=== PATIENT | male | born 1985 | race Caucasian/White ===

== ENCOUNTER 2021-07-17 01:10 | Emergency (ER) | payer OTHER ==
[2021-07-17] MEDS ORDERED: Ibuprofen 600 MG Tab PO ONE (01:31)
[2021-07-17] MEDS ORDERED: Cephalexin 500 MG Cap PO ONE (01:54)
--- NOTE | 2021-07-17 01:55 | EDM.PDOC ---
ED HPI GENERAL MEDICAL PROBLEM - General Chief Complaint: Lower Extremity Injury/Pain Stated Complaint: FELL- HURT LEFT LEG Time Seen by Provider: 07/17/21 01:28 - History of Present Illness INITIAL COMMENTS - FREE TEXT/NARRATIVE: HISTORY AND PHYSICAL: History of present illness: This is a 35-year-old gentleman who presents ER today secondary to injury to his left mid pretibial region and left ankle pain. Patient ports that he fell down and has a laceration to his left mid pretibial region from a stone that injured it and resulted in twisting his left ankle. Patient has any head trauma. Patient has any injury to any other joints or extremity. Patient has been off of consciousness. Review of systems: As per history of present illness and below otherwise all systems reviewed and negative. Past medical history: As per history of present illness and as reviewed below otherwise noncontributory. Surgical history: As per history of present illness and as reviewed below otherwise noncontributory. Social history: No reported history of drug abuse. Family history: As per history of present illness and as reviewed below otherwise noncontributory. Physical exam: This patient was seen and evaluated during the 2019 SARS-CoV-2 novel coronavirus pandemic period. Community viral transmission is ongoing at time of this encounter and the emergency department is operating under pandemic response procedures. Constitutional: Patient is oriented to person, place, and time. Appears well- developed and well-nourished. No distress. HEENT: Moist mucous membranes Head: Normocephalic and atraumatic Eyes: Right eye exhibits no discharge. Left eye exhibits no discharge. No scleral icterus Neck: Normal range of motion. No tracheal deviation present. Cardiovascular: Normal rate and regular rhythm. Pulmonary: Effort normal, no respiratory distress. Abdominal: No distention Musculoskeletal: Normal range of motion Neurologic: Alert and oriented to person, place and time. Skin: [place], warm and dry. Psychiatric: Normal mood and affect. Behavior is normal. Judgment and thought content normal. Nursing note and vital signs have been reviewed Patient's ER physical exam is significant for tenderness palpation to his lateral and medial malleolus of his left ankle. Patient has a 2 cm laceration to his mid pretibial region. Diagnostics: X-ray left tib-fib: No acute fracture or dislocation. No foreign body X-ray left ankle: No acute fracture dislocation Therapeutics: Motrin 600 mg p.o. Suture: Please see suture note Assessment and plan: 35-year-old gentleman who presents ER today secondary to injury to his left lower extremity. X-rays are negative for any acute fracture dislocation or foreign body. Patient will be sutured in the ED. Tetanus status is up-to-date. Patient be discharged home with a prescription for Keflex and ibuprofen. Patient need a wound check in 2 days and suture removal in 10 days. Reassessment at the time of disposition demonstrates that the patient is in no acute distress. The patient has remained stable throughout the entire ED visit and is without objective evidence for acute process requiring urgent intervention or hospitalization. The patient is stable for discharge, counseling is provided as documented above, discussed symptomatic treatment and specific conditions for return. I have spoken with the patient/caregiver and discussed todays findings, in addition to providing specific details for the plan of care. Questions are answered and there is agreement with the plan. Definitive disposition and diagnosis as appropriate pending reevaluation and review of above. Right Lower Leg Pain Score (Numeric/FACES): 7 - Related Data Allergies Allergy/AdvReac Type Severity Reaction Status Date / Time No Known Allergies Allergy Verified 07/17/21 01:19 Home Meds: Home Meds Ibuprofen 600 mg PO Q6HR PRN #30 tablet 07/17/21 [Rx] cephALEXin [Keflex] 500 mg PO Q8H #21 cap 07/17/21 [Rx] Past Medical History - Past Health History Medical/Surgical History: Denies Medical/Surgical History - Infectious Disease History Infectious Disease History: Reports: Chicken Pox Social & Family History - Family History Family Medical History: No Pertinent Family History - Caffeine Use Caffeine Use: Reports: None - Recreational Drug Use Recreational Drug Use: No Review of Systems - Review of Systems Review Of Systems: See Below ED EXAM, GENERAL - Physical Exam Exam: See Below ED TRAUMA EXTREMITY PROCEDURES - Laceration/Wound Repair Left Middle Leg Lac/Wound Length In cm: 2 Appearance: Linear Distal NVT: Neuro & Vascular Intact Anesthetic Type: Local Local Anesthesia - Lidocaine (Xylocaine): 1% Plain Local Anesthetic Volume: 2cc Skin Prep: Saline Exploration/Debridement/Repair: Wound Explored, No Foreign Material Found Closed With: Sutures Suture Size: 4-0 # of Sutures: 4 Suture Type: Nylon Sterile Dressing Applied: Nurse Tetanus Status Addressed: Yes Complications: No Course - Vital Signs Last Recorded V/S: Last Vital Signs Temp 97.0 F 07/17/21 01:34 Pulse 86 07/17/21 01:20 Resp 19 07/17/21 01:20 BP 139/92 H 07/17/21 01:20 Pulse Ox 96 07/17/21 01:20 - Orders/Labs/Meds Meds: Medications Discontinued Medications Generic Name Dose Route Start Last Admin Trade Name Freq PRN Reason Stop Dose Admin Bacitracin 1 dose 07/17/21 02:15 Bacitracin Oint 1 Gm U/D Packet TOP 07/17/21 02:16 ONETIME ONE Cephalexin 500 mg 07/17/21 01:54 07/17/21 02:09 Cephalexin 500 Mg Cap PO 07/17/21 01:55 500 mg ONETIME ONE Administration Ibuprofen 600 mg 07/17/21 01:31 07/17/21 01:34 Ibuprofen 600 Mg Tab PO 07/17/21 01:32 600 mg ONETIME ONE Administration Lidocaine HCl 5 ml 07/17/21 01:31 07/17/21 01:34 Lidocaine 1% 5 Ml Sdv INJECT 07/17/21 01:32 5 ml ONETIME ONE Administration Departure - Departure Time of Disposition: 01:52 Disposition: Home, Self-Care 01 Condition: Good Clinical Impression: Left ankle sprain, Laceration of left leg - Discharge Information Prescriptions: Ibuprofen 600 mg PO Q6HR PRN #30 tablet PRN Reason: Pain cephALEXin [Keflex] 500 mg PO Q8H #21 cap Instructions: Ankle Sprain, Laceration Care, Adult, [id number] Referrals: PCP,None [Primary Care Provider] - Forms: ED Department Discharge Additional Instructions: You were seen and evaluated in ER today secondary to injury to your left leg and ankle. You will need a wound check in 2 days to make sure there is no infection and sutures can be removed in 10 days. You can take ibuprofen as needed every 6 hours as needed for pain. You will be given a prescription for Keflex 500 mg to take 3 times a day for 7 days. [facility] at [address] [address] The following information is given to patients seen in the emergency department who are being discharged to home. This information is to outline your options for follow-up care. We provide all patients seen in our emergency department with a follow-up referral. The need for follow-up, as well as the timing and circumstances, are variable depending upon the specifics of your emergency department visit. If you don't have a primary care physician on staff, we will provide you with a referral. We always advise you to contact your personal physician following an emergency department visit to inform them of the circumstance of the visit and for follow-up with them and/or the need for any referrals to a consulting specialist. The emergency department will also refer you to a specialist when appropriate. This referral assures that you have the opportunity for follow-up care with a specialist. All of these measure are taken in an effort to provide you with optimal care, which includes your follow-up. Under all circumstances we always encourage you to contact your private physician who remains a resource for coordinating your care. When calling for follow-up care, please make the office aware that this follow-up is from your recent emergency room visit. If for any reason you are refused follow-up, please contact the [facility] Emergency Department at and asked to speak to the emergency department charge nurse. [facility] - Primary Care [address] [place] [address] [id number] [address] [address] Sepsis Event Note (ED) - Focused Exam Vital Signs: Vital Signs Temp Temp Pulse Resp BP Pulse Ox 07/17/21 01:34 97.0 F 07/17/21 01:20 97.0 F 86 19 139/92 H 96
--- NOTE | 2021-07-17 02:14 | CR ---
Indication: Pain after fall Technique: views Comparison: None Findings: Bones: Alignment is normal. No fractures or bone lesions. Joint spaces: Unremarkable. Soft tissues: Unremarkable. Dictated by Toby Moe MD @ 07/17/2021 2:13:26 AM (Electronically Signed)
[2021-07-17] MEDS ORDERED: Bacitracin Oint 1 GM U/D Packet TOP ONE (02:15)
--- NOTE | 2021-07-17 02:16 | CR ---
Indication: Pain after fall Technique: Two views Comparison: None Findings: Bones: Alignment is normal. No fractures or bone lesions. Joint spaces: Unremarkable. Soft tissues: Anterior soft tissue swelling Dictated by Toby Moe MD @ 07/17/2021 2:14:14 AM (Electronically Signed)
== END 2021-07-17 02:34 | disposition home or self-care (01) ==
LOC: MW.ED 01:10
DX: S81.812A Laceration without foreign body, left lower leg, initial encounter (principal); S93.402A Sprain of unspecified ligament of left ankle, initial encounter; X50.1XXA Overexertion from prolonged static or awkward postures, initial encounter
CPT/HCPCS: 12001; 73590; 73610; 99283; A9270

== ENCOUNTER 2022-05-21 13:34 | Emergency (ER) | payer OTHER ==
[2022-05-21] MEDS ORDERED: Ibuprofen 600 MG Tab PO ONE (16:34)
[2022-05-21] MEDS ORDERED: Azithromycin 250 MG Tab PO ONE (16:34)
== END 2022-05-21 16:45 | disposition home or self-care (01) ==
LOC: MW.ED 13:34
DX: J02.9 Acute pharyngitis, unspecified (principal); F17.210 Nicotine dependence, cigarettes, uncomplicated
CPT/HCPCS: 87651; 99283; A9270

== ENCOUNTER 2023-12-21 14:37 | Emergency (ER) | payer BC, OTHER ==
[2023-12-21] MEDS ORDERED: Sodium Chloride 0.9% 2.5 ML Syringe FLUSH PRN (14:41)
[2023-12-21] MEDS ORDERED: Sodium Chloride 0.9% 10 ML Syringe FLUSH PRN (14:41)
[2023-12-21 15:11] LABS: BASOPHILS ABSOLUTE AUTO 0.08 K/uL (0.00-0.20); BASOPHILS PERCENT AUTO 0.7 % (0.0-1.0); EOSINOPHILS ABSOLUTE AUTO 0.27 K/uL (0.00-0.45); EOSINOPHILS PERCENT AUTO 2.3 % (0.0-6.0); HEMATOCRIT 44.2 % (42.0-52.0); HEMOGLOBIN 15.1 g/dL (14.0-18.0); IMMATURE GRAN ABSOLUTE AUTO 0.13 K/uL (0.00-0.05); IMMATURE GRAN PERCENT AUTO 1.1 % (0.0-0.4); LYMPHOCYTES ABSOLUTE AUTO 2.82 K/uL (1.00-4.80); LYMPHOCYTES PERCENT AUTO 24.1 % (24.0-44.0); MEAN CORPUSCULAR HEMOGLOBIN 31.3 pg (28.0-32.0); MEAN CORPUSCULAR HGB CONC 34.2 g/dL (32.0-36.0); MEAN CORPUSCULAR VOLUME 91.7 fL (83.0-99.0); MEAN PLATELET VOLUME 9.6 fL (9.4-12.4); MONOCYTES ABSOLUTE AUTO 1.03 K/uL (0.00-0.80); MONOCYTES PERCENT AUTO 8.8 % (0.0-8.0); NEUTROPHILS ABSOLUTE AUTO 7.38 K/uL (1.80-7.70); PLATELET COUNT,PLT 297 K/uL (150-400); RED BLOOD CELL COUNT 4.82 M/uL (4.52-5.90); WHITE BLOOD CELL COUNT,WBC 11.71 K/uL (3.9-11.3)
[2023-12-21] MEDS: Aspirin 81 MG Tab.Chew PO ONE (15:41)
[2023-12-21 15:49] LABS: A/G RATIO 1.1 (0.9-1.6); ALANINE AMINOTRANSFERASE,ALT 37 IU/L (14-63); ALBUMIN 3.9 g/dL (3.4-5.0); ALKALINE PHOSPHATASE 76 U/L (46-116); ASPARTATE AMNIOTRANSFERASE,AST 21 IU/L (15-37); BILIRUBIN TOTAL 0.7 mg/dL (0.2-1.0); BLOOD UREA NITROGEN,BUN 13 mg/dL (7.0-18.0); CALCIUM 9.2 mg/dL (8.5-10.1); CARBON DIOXIDE,CO2 28.1 mmol/L (21.0-32.0); CHLORIDE,CL 103 mmol/L (98-107); CREATININE 1.1 mg/dL (0.8-1.3); EST CRCL DRUG DOSING (CG) 100.92 mL/min; GLUCOSE RANDOM 87 mg/dL (74-106); POTASSIUM,K 4.2 mmol/L (3.5-5.1); PROTEIN TOTAL,TP 7.6 g/dL (6.4-8.2); SODIUM,NA 139 mmol/L (136-148); TSH ULTRASENSITIVE 2.93 uIU/mL (0.36-3.74)
[2023-12-21 15:51] LABS: ESTIMATED GFR 89 mL/min (>60)
[2023-12-21] MEDS: Sodium Chloride 0.9% 1,000 ML IV ONE (16:20)
[2023-12-21] MEDS: Ketorolac 30 MG/ML SDV IVPUSH ONE (16:23)
[2023-12-21] MEDS: LORazepam 1 MG Tab PO ONE (16:38)
== END 2023-12-21 16:52 | disposition home or self-care (01) ==
LOC: MW.ED 14:37
DX: R07.9 Chest pain, unspecified (principal); F41.9 Anxiety disorder, unspecified; Z88.5 Allergy status to narcotic agent; Z75.8 Other problems related to medical facilities and other health care; Z79.899 Other long term (current) drug therapy
CPT/HCPCS: 36415; 71045; 80053; 84443; 84484; 85025; 93005; 99285; A9270; 93010; 99284

== ENCOUNTER 2024-02-01 03:05 | Emergency (ER) | payer BC, OTHER ==
[2024-02-01] MEDS: Acetaminophen/oxyCODONE 325-5 MG Tab PO ONE (03:30)
== END 2024-02-01 03:31 | disposition home or self-care (01) ==
LOC: MW.ED 03:05
DX: M54.9 Dorsalgia, unspecified (principal); G89.29 Other chronic pain; F17.210 Nicotine dependence, cigarettes, uncomplicated; Z75.8 Other problems related to medical facilities and other health care; Z88.5 Allergy status to narcotic agent; Z79.899 Other long term (current) drug therapy
CPT/HCPCS: 99283; A9270

== ENCOUNTER 2024-03-04 22:21 | Emergency (ER) | payer BC, OTHER ==
[2024-03-04 22:39] LABS: BASOPHILS ABSOLUTE AUTO 0.11 K/uL (0.00-0.20); BASOPHILS PERCENT AUTO 0.9 % (0.0-1.0); EOSINOPHILS ABSOLUTE AUTO 0.48 K/uL (0.00-0.45); EOSINOPHILS PERCENT AUTO 3.7 % (0.0-6.0); HEMATOCRIT 44.5 % (42.0-52.0); IMMATURE GRAN ABSOLUTE AUTO 0.12 K/uL (0.00-0.05); IMMATURE GRAN PERCENT AUTO 0.9 % (0.0-0.4); LYMPHOCYTES PERCENT AUTO 30.2 % (24.0-44.0); MEAN CORPUSCULAR HEMOGLOBIN 31.1 pg (28.0-32.0); MEAN CORPUSCULAR HGB CONC 33.7 g/dL (32.0-36.0); MEAN CORPUSCULAR VOLUME 92.1 fL (83.0-99.0); MEAN PLATELET VOLUME 9.5 fL (9.4-12.4); MONOCYTES ABSOLUTE AUTO 1.13 K/uL (0.00-0.80); MONOCYTES PERCENT AUTO 8.8 % (0.0-8.0); NEUTROPHILS ABSOLUTE AUTO 7.17 K/uL (1.80-7.70); NEUTROPHILS PERCENT AUTO 55.5 % (41.0-71.0); PLATELET COUNT,PLT 310 K/uL (150-400); RED BLOOD CELL COUNT 4.83 M/uL (4.52-5.90); WHITE BLOOD CELL COUNT,WBC 12.91 K/uL (3.9-11.3)
[2024-03-04 23:08] LABS: A/G RATIO 0.9 (0.9-1.6); ALBUMIN 3.4 g/dL (3.4-5.0); BILIRUBIN TOTAL 0.4 mg/dL (0.2-1.0); CALCIUM 8.9 mg/dL (8.5-10.1); CARBON DIOXIDE,CO2 28.3 mmol/L (21.0-32.0); CREATININE 1.3 mg/dL (0.8-1.3); EST CRCL DRUG DOSING (CG) 85.39 mL/min; POTASSIUM,K 3.5 mmol/L (3.5-5.1); PROTEIN TOTAL,TP 7.4 g/dL (6.4-8.2)
[2024-03-04] MEDS: Sodium Chloride 0.9% 10 ML Syringe FLUSH PRN (23:14)
[2024-03-04] MEDS: Sodium Chloride 0.9% 2.5 ML Syringe FLUSH PRN (23:14)
[2024-03-05] MEDS: Iopamidol 755 MG/ML 500 ML Multipack Bottle IVPUSH ONE (01:13)
== END 2024-03-05 02:16 | disposition home or self-care (01) ==
LOC: MW.ED 22:21
DX: R07.89 Other chest pain (principal); Z88.0 Allergy status to penicillin; Z75.8 Other problems related to medical facilities and other health care
CPT/HCPCS: 36415; 71275; 80053; 84484; 85025; 93005; 99285; J3490; Q9967; 93010; 99284

== ENCOUNTER 2024-03-10 22:09 | Emergency (ER) | payer OTHER, BC ==
[2024-03-10 22:58] LABS: BASOPHILS ABSOLUTE AUTO 0.09 K/uL (0.00-0.20); BASOPHILS PERCENT AUTO 0.6 % (0.0-1.0); EOSINOPHILS ABSOLUTE AUTO 0.42 K/uL (0.00-0.45); EOSINOPHILS PERCENT AUTO 2.8 % (0.0-6.0); IMMATURE GRAN ABSOLUTE AUTO 0.16 K/uL (0.00-0.05); IMMATURE GRAN PERCENT AUTO 1.1 % (0.0-0.4); LYMPHOCYTES PERCENT AUTO 25.3 % (24.0-44.0); MEAN CORPUSCULAR HEMOGLOBIN 30.7 pg (28.0-32.0); MEAN CORPUSCULAR HGB CONC 34.1 g/dL (32.0-36.0); MEAN CORPUSCULAR VOLUME 90.2 fL (83.0-99.0); MEAN PLATELET VOLUME 9.4 fL (9.4-12.4); MONOCYTES ABSOLUTE AUTO 1.07 K/uL (0.00-0.80); MONOCYTES PERCENT AUTO 7.1 % (0.0-8.0); NEUTROPHILS ABSOLUTE AUTO 9.46 K/uL (1.80-7.70); NEUTROPHILS PERCENT AUTO 63.1 % (41.0-71.0); PLATELET COUNT,PLT 343 K/uL (150-400); RED BLOOD CELL COUNT 4.88 M/uL (4.52-5.90)
[2024-03-10 23:11] LABS: INR < 0.93 (0.86-1.11); PTT,PARTIAL THROMBOPLSTIN TIME 27.6 SEC (23.9-30.7)
[2024-03-10] MEDS: HYDROmorphone 1 MG/ML Syringe IVPUSH STA (23:13)
[2024-03-10] MEDS: Ondansetron 4 MG/2 ML SDV IVPUSH STA (23:13)
[2024-03-10 23:19] LABS: A/G RATIO 0.8 (0.9-1.6); ALANINE AMINOTRANSFERASE,ALT 32 IU/L (14-63); ALBUMIN 3.6 g/dL (3.4-5.0); ALKALINE PHOSPHATASE 96 U/L (46-116); ASPARTATE AMNIOTRANSFERASE,AST 7 IU/L (15-37); BILIRUBIN TOTAL 0.2 mg/dL (0.2-1.0); BLOOD UREA NITROGEN,BUN 11 mg/dL (7.0-18.0); CALCIUM 8.9 mg/dL (8.5-10.1); CARBON DIOXIDE,CO2 25.7 mmol/L (21.0-32.0); CHLORIDE,CL 102 mmol/L (98-107); CREATININE 1.2 mg/dL (0.8-1.3); GLUCOSE RANDOM 141 mg/dL (74-106); LIPASE 40 U/L (16-77); POTASSIUM,K 3.4 mmol/L (3.5-5.1); PROTEIN TOTAL,TP 7.9 g/dL (6.4-8.2); SODIUM,NA 138 mmol/L (136-148)
[2024-03-10 23:21] LABS: ESTIMATED GFR 80 mL/min (>60)
[2024-03-10 23:29] LABS: ACETAMINOPHEN <2.0 ug/mL; SALICYLATE 2.2 mg/dL (0.0-20.0)
[2024-03-11 00:05] LABS: APPEARANCE,URINE CLEAR; BILIRUBIN,URINE NEGATIVE (NEGATIVE); COLOR,URINE YELLOW; GLUCOSE,URINE NEGATIVE (NEGATIVE); KETONES,URINE NEGATIVE (NEGATIVE); LEUKOCYTE ESTERASE,URINE NEGATIVE (NEGATIVE); NITRITE,URINE NEGATIVE (NEGATIVE); OCCULT BLOOD,URINE TRACE-LYSED (NEGATIVE); PROTEIN,URINE NEGATIVE (NEGATIVE); UROBILINOGEN,URINE 0.2 EU/dL (<2.0)
[2024-03-11 00:09] LABS: BACTERIA,URINE FEW (NEGATIVE); CALCIUM OXALATE CRYSTALS,URINE FEW (NEGATIVE); EPITHELIAL CELLS,URINE RARE (NONE-FEW); MUCUS,URINE LIGHT (NONE-MOD); RBC,URINE 0-1 (0-2/HPF); WBC,URINE NONE SEEN (0-5/HPF)
[2024-03-11] MEDS: Iopamidol 755 MG/ML 500 ML Multipack Bottle IVPUSH STA (00:17)
== END 2024-03-11 01:45 | disposition home or self-care (01) ==
LOC: MW.ED 22:09
DX: N39.44 Nocturnal enuresis (principal); R07.89 Other chest pain; G89.29 Other chronic pain; M54.50 Low back pain, unspecified; I10 Essential (primary) hypertension; Z75.8 Other problems related to medical facilities and other health care; Z88.5 Allergy status to narcotic agent; Z79.899 Other long term (current) drug therapy
CPT/HCPCS: 36415; 71275; 72128; 74176; 80053; 80143; 80179; 81001; 83690; 84484; 85025; 85610; 85730; 93005; 96374; 96375; 99285; J1170; J2405; J3360; Q9967; 72131-26; 93010; 99284

== ENCOUNTER 2024-05-13 21:17 | Emergency (ER) | payer BC, OTHER ==
[2024-05-13] MEDS: Acetaminophen/HYDROcodone 325-5 MG Tab PO ONE (21:46)
== END 2024-05-13 22:01 | disposition home or self-care (01) ==
LOC: MW.ED 21:17
DX: M54.50 Low back pain, unspecified (principal); G89.29 Other chronic pain; I10 Essential (primary) hypertension; Z79.890 Hormone replacement therapy; Z88.5 Allergy status to narcotic agent
CPT/HCPCS: 99283; A9270

== ENCOUNTER 2024-07-23 20:02 | Emergency (ER) | payer OTHER, BC ==
[2024-07-23] MEDS: Dexamethasone 4 MG Tab PO STA (20:57)
[2024-07-23] MEDS: Ketorolac 30 MG/ML SDV IM STA (20:57)
== END 2024-07-23 22:28 | disposition home or self-care (01) ==
LOC: MW.ED 20:02
DX: G89.29 Other chronic pain (principal); M54.50 Low back pain, unspecified; I10 Essential (primary) hypertension; Z75.8 Other problems related to medical facilities and other health care; Z88.5 Allergy status to narcotic agent; Z79.890 Hormone replacement therapy; Z79.899 Other long term (current) drug therapy
CPT/HCPCS: 96372; 99283; J1885; J3360; J8540

== ENCOUNTER 2025-02-22 21:22 | Emergency (ER) | payer BC, OTHER ==
[2025-02-22] MEDS: methylPREDNISolone Sodium Succinate 40 MG/1 ML SDV IM ONE ×2 (22:26→22:30)
[2025-02-22] MEDS: methylPREDNISolone Sodium Succinate 125 MG/2 ML SDV ONE (22:29)
[2025-02-22] MEDS: Ketorolac 30 MG/ML SDV IM ONE (22:29)
[2025-02-22] MEDS: diphenhydrAMINE 50 MG/ML SDV IM ONE (22:29)
[2025-02-22] MEDS: Orphenadrine 60 MG/2 ML Inj IM ONE (22:30)
== END 2025-02-22 22:57 | disposition home or self-care (01) ==
LOC: MW.ED 21:22
DX: S10.96XA Insect bite of unspecified part of neck, initial encounter (principal); F17.210 Nicotine dependence, cigarettes, uncomplicated; I10 Essential (primary) hypertension; Z79.899 Other long term (current) drug therapy; Z88.5 Allergy status to narcotic agent; W57.XXXA Bitten or stung by nonvenomous insect and other nonvenomous arthropods, initial encounter
CPT/HCPCS: 96372; 99283; J1200; J1885; J2360; J2919; 99282

== ENCOUNTER 2025-03-22 19:33 | Emergency (ER) | payer BC ==
[2025-03-22] MEDS: HYDROmorphone 1 MG/ML Syringe IM ONE (22:58)
[2025-03-22] MEDS: Ketorolac 60 MG/2 ML SDV IM ONE (22:59)
== END 2025-03-22 23:41 | disposition home or self-care (01) ==
LOC: MW.ED 19:33
DX: M54.50 Low back pain, unspecified (principal); G89.29 Other chronic pain; I10 Essential (primary) hypertension; F17.200 Nicotine dependence, unspecified, uncomplicated; Z88.5 Allergy status to narcotic agent
CPT/HCPCS: 96372; 99283; J1171; J1885; 99282